=== PATIENT | male | born 1950 | race Caucasian/White ===

== ENCOUNTER 2022-06-08 20:11 | Emergency (ER) | payer BC, OTHER ==
[~2022-06-08] VITALS: Ht 185.4 cm; Wt 115.7 kg
[~2022-06-08 20:11] MED LIST: ACET-1172 PO; ASPI-1155 PO; FLUO10TA PO; IBUP-1969 PO; MULT-1117 PO; OLME40TA12 PO; OMEG300C3 PO; ROSU10TA2 PO; TRAV2.5D BOTH EYES; UBID100C45 PO; [UNRECOGNIZED DRUG - CODE] PO
[2022-06-08 20:22] VITALS: BP_SYST 123
--- NOTE | 2022-06-08 20:26 | NUR ---
PATIENT CURRENTLY IN TENT, APROX 1 HOUR AGO, OBTAINED A 2CM FULL THICKNESS LACERATION TO LEFT PINKY FINGER. BLEEDING CURRENTLY CONTROLLED.
[2022-06-08] MEDS ORDERED: BACITRACIN 1 GM OINT TP ONE (20:45)
[2022-06-08] MEDS ORDERED: LIDOCAINE 1% 10 MG/ML, 20 ML MDV INJ ONE (20:45)
[2022-06-08] MEDS ORDERED: DIPH-TET-PERTUS Vaccine 0.5 ML VIAL (ADACEL) I.M. ONE (20:45)
--- NOTE | 2022-06-08 20:55 | NUR ---
KAYDEN, RN REPORT FROM REGINA LOZOYA. PT I BED #8 FOR LAC REPAIR BY DR. HOLLEY. ELENA POSITIVE
[2022-06-08 21:56] VITALS: BP_SYST 130
--- NOTE | 2022-06-08 21:57 | NUR ---
PT STABLE FOR D/C TO HOME WITH , KACEY WRAP DRESSING TO LEFT TH DIGIT APPLIED, WITH BACITRACIN OINT APPLIED TO SURTURES/ WOUND. PT VERBALIZES UNDERSTANDIN OF AFTECARE PAPERWORK. WILL F/U WITH PMD FRIDAY. TO LOBBY AMB WITH ALL PAPERWORK IN HAND
== END 2022-06-08 21:51 | disposition home or self-care (01) ==
LOC: SED 20:11
DX: S61.217A Laceration without foreign body of left little finger without damage to nail, initial encounter (principal); I10 Essential (primary) hypertension; Z79.899 Other long term (current) drug therapy; W26.8XXA Contact with other sharp object(s), not elsewhere classified, initial encounter; Y93.89 Activity, other specified; Y92.89 Other specified places as the place of occurrence of the external cause; Y99.8 Other external cause status
CPT/HCPCS: 99283; 90715; 90471; 12002; J2001; 99282